=== PATIENT | male | born 1995 | race Caucasian/White ===

== ENCOUNTER 2024-08-17 19:17 | Emergency (ER) | payer OTHER, SELFPAY ==
[2024-08-17 19:32] VITALS: BP 137/59; PULSE 71; RESP 16; TEMP 36.9; O2SAT 99; BMI 22.4
--- NOTE | 2024-08-17 19:38 | DI.RAD.S_ITS ---
PROCEDURE: XR ANKLE RT MIN 3V INDICATIONS: Fall while skateboarding, pain, decreased ROM TECHNIQUE: 3 views of the ankle were acquired. COMPARISON: None. FINDINGS: Bones: Minimally displaced lateral malleolar fracture. Ankle mortise is normally aligned. No suspicious bony lesions. Soft tissues: No tibiotalar joint effusion. Achilles tendon appears normal. IMPRESSION: Minimally displaced lateral malleolar fracture. Approved by: Renae Elmore M.D.,Ph.D. on 08/17/2024 at 20:45
[2024-08-17 20:12] VITALS: PULSE 60
--- NOTE | 2024-08-17 20:19 | ED.LOWEXIN ---
HPI - Extremity Injury (Lower) General Chief Complaint: Extremity Injury, Lower Stated Complaint: fell injury right foot Time Seen by Provider: 08/17/24 19:25 Source: patient Mode of arrival: Family Vehicle History of Present Illness HPI Narrative: 29-year-old gentleman with no significant past medical history was skateboarding when he landed awkwardly and heard a crack and now having difficulty bearing weight and ambulating brought in via EMS for further evaluation. Patient did not take anything prior to arrival here for pain control. Patient denies headache, dizziness, loss of consciousness, neck pain, chest pain, shortness of breath, back pain, numbness, tingling, down the arms and legs bowel or bladder incontinence. Other than what is stated 14 point review of system is negative. Related Data Allergies Allergy/AdvReac Type Severity Reaction Status Date / Time No Known Drug Allergies Allergy Verified 08/17/24 19:35 Review of Systems Review of Systems ROS Unobtainable: All systems reviewed & are unremarkable except as noted in HPI and below Exam Narrative Exam Narrative: GENERAL: [29] year old patient appears stated age. Well-developed patient, in mild distress. HEAD: Atraumatic. Normocephalic. EYES: Pupils equal round and reactive. Extraocular motions intact. No scleral icterus. No injection or drainage. EXTREMITIES: No edema or joint tenderness. RLE TTP lat malleoil, motor/sensory intact +2 DP +2PT cap refill <2secs BACK: Nontender without deformity or crepitance. No flank tenderness. NEURO: AOx3. SKIN: No rash or erythema of visible areas Initial Vital Signs Initial Vital Signs: Vital Signs Temperature 98.4 F 08/17/24 19:32 Pulse Rate 71 08/17/24 19:32 Respiratory Rate 16 08/17/24 19:32 Blood Pressure 137/59 L 08/17/24 19:32 Pulse Oximetry 99 08/17/24 19:32 Oxygen Delivery Method Room Air 08/17/24 19:32 Course Orders Ordered: ED Orders 08/17/24 19:38 XR ankle RT min 3V Stat Vital Signs Vital signs: Vital Signs - 8 hr 08/17/24 19:32 08/17/24 20:12 Temperature 98.4 F Pulse Rate 71 Pulse Rate [Left Dorsalis Pedis] 60 Respiratory Rate 16 Blood Pressure 137/59 L Pulse Oximetry 99 Oxygen Delivery Method Room Air MDM - Extremity Injury (Lower) Imaging Data Extremity x-ray #1: Radiologist's Impression: [address] [address] XRay Report Signed Patient: Shayne Yates MR#: [id number] : 1995 Acct:[id number] Age/Sex: 29 / M Date of Service: 08/17/24 Loc: ED Accession Number: [id number] Procedure: XR ankle RT min 3V Ordering Provider: Herman Grant D.O. PROCEDURE: XR ANKLE RT MIN 3V INDICATIONS: Fall while skateboarding, pain, decreased ROM TECHNIQUE: 3 views of the ankle were acquired. COMPARISON: None. FINDINGS: Bones: Minimally displaced lateral malleolar fracture. Ankle mortise is normally aligned. No suspicious bony lesions. Soft tissues: No tibiotalar joint effusion. Achilles tendon appears normal. IMPRESSION: Minimally displaced lateral malleolar fracture. MDM Narrative Medical decision making narrative: Vital signs nurse triage note medication list previous ER visits in all imaging studies reviewed. Patient is splinted posterior and U shaped splint with crutches. Orthopedic referral placed follow up. Patient offered pain medicine but declined. Differential diagnosis fracture dislocation contusion sprain. Discharge Plan Departure Patient Disposition: Home Clinical Impression: Ankle fracture Fracture of distal end of fibula Qualifiers: Encounter type: initial encounter Fracture type: closed Fracture morphology: other fracture Laterality: right Qualified Code(s): S82.831A - Other fracture of upper and lower end of right fibula, initial encounter for closed fracture Instructions: DI for Ankle Fracture Activity Restrictions/Additional Instructions: Return with new or worsening symptoms. Follow up with Orthopedic referral. Take Tylenol and/or ibuprofen for pain control. Referrals: Garrett Phipps MD [Physician, Orthopedic Surgery] - 3-5 days Referral Note: Distal fibula fracture Stand Alone Forms: Patient Portal/API
[2024-08-17 21:09] VITALS: BP 123/79; PULSE 63; RESP 15; TEMP 37.2; O2SAT 99
== END 2024-08-17 21:10 | disposition home or self-care (01) ==
PROVIDERS: Emergency Provider Family Medicine
DX: S82.61XA Displaced fracture of lateral malleolus of right fibula, initial encounter for closed fracture (principal); V00.131A Fall from skateboard, initial encounter; Y93.51 Activity, roller skating (inline) and skateboarding
CPT/HCPCS: 29515; 73610; 99282; 99283